=== PATIENT | female | born 1945 | race African-American/Black ===

== ENCOUNTER 2021-09-21 03:18 | Observation (INO) ==
[2021-09-21] MEDS ORDERED: ASPIRIN 325 MG TABLET PO STA (03:34)
[2021-09-21] MEDS ORDERED: NITROGLYCERIN SL 0.4 MG TABLET SL STA (04:18)
[2021-09-21] MEDS ORDERED: MORPHINE 2 MG/1 ML SYRINGE IV STA (04:18)
[2021-09-21] MEDS ORDERED: ONDANSETRON 4 MG/2 ML VIAL IV STA (04:18)
[2021-09-21 04:46] LABS: Basophils # 0.1 10*3/uL (0.0-0.2); Basophils % 0.5 % (0.0-0.8); Eosinophils # 0.2 10*3/uL (0.0-0.87); Eosinophils % 2.1 % (0.00-10.9); Hematocrit 38.8 VOL% (35.7-47.0); Hemoglobin 12.5 GM/DL (12.0-16.0); Immature Granulocytes % 0.4 %; Immature Granulocytes Absolute 0.04 #; Lymphocytes # 3.5 10*3/uL (1.4-4.0); Lymphocytes % 33.5 % (21.3-54.2); Mean Corpuscular HGB Conc 32.2 GM/DL (32-36); Mean Corpuscular Volume 86.2 FL (87-102); Mean Platelet Volume 9.4 FL (9.6-12.0); Monocytes % 6.9 % (1.7-12.7); Neutrophils % 56.6 % (38.7-73.9); Platelet Count 431 T/CUMM (130-400); Red Cell Distribution Width 13.6 % (9.3-17.3); White Blood Count 10.5 T/CUMM (4-12)
[2021-09-21 04:55] LABS: INR 0.9; PT Patient Result 10.5 SECS (10.5-12.0)
[2021-09-21 05:14] LABS: Alanine Aminotransferase 10 U/L (13-56); Albumin 3.9 G/DL (3.4-5.0); Alkaline Phosphatase 119 U/L (45-117); Aspartate Amino Transferase 9 U/L (0-37); Bilirubin,Total < 0.39 MG/DL (0.20-1.00); Blood Urea Nitrogen 22 MG/DL (7-18); Calcium 9.4 MG/DL (8.5-10.1); Carbon Dioxide 26 MMOL/L (21-32); Estimated Glom Filtration Rate 77 ML/MIN; Glucose 210 MG/DL (74-106); Osmolality,Calculated 281.8 MOS/KG (273-304); Potassium 3.6 MMOL/L (3.5-5.1); Sodium 137 MMOL/L (136-145); Total Protein 7.4 G/DL (6.4-8.2)
[2021-09-21] MEDS ORDERED: hydrALAZINE 20 MG/1 ML VIAL IV PRN (05:53)
[2021-09-21] MEDS ORDERED: ONDANSETRON 4 MG/2 ML VIAL IV PRN (05:53)
[2021-09-21] MEDS ORDERED: GLUCAGON 1 MG VIAL IM PRN (05:53)
[2021-09-21] MEDS ORDERED: MAGNESIUM SULF RIDER 2 GM/50 ML PREMIX IV ONE (05:53)
[2021-09-21] MEDS ORDERED: MORPHINE 2 MG/1 ML SYRINGE IV PRN (05:53)
[2021-09-21] MEDS ORDERED: ACETAMINOPHEN 325 MG TABLET PO PRN (05:53)
[2021-09-21] MEDS ORDERED: DEXTROSE 10% 250 ML BAG IV PRN (05:53)
[2021-09-21] MEDS ORDERED: MAGNESIUM SULF RIDER 4 GM/100 ML PREMIX IV PRN (06:52)
[2021-09-21] MEDS ORDERED: MAGNESIUM SULF RIDER 2 GM/50 ML PREMIX IV PRN (06:52)
[2021-09-21] MEDS: INSULIN LISPRO 100 UNIT/ML SUBCUT SCH ×3 (07:35→16:40)
[2021-09-21 08:53] LABS: Risk Ratio 3.57; Thyroid Stimulating Hormone 2.49 uIU/ml (0.358-3.74); VLDL Cholesterol 24.4 MG/DL
[2021-09-21] MEDS: PANTOPRAZOLE 40 MG TABLET PO SCH ×2 (09:02→22:03)
[2021-09-21] MEDS: ENOXAPARIN 40 MG/0.4 ML SYRINGE SUBCUT SCH (09:02)
[2021-09-21] MEDS: METOPROLOL SUCCINATE XL 25 MG TABLET PO SCH (10:06)
[2021-09-21] MEDS: POTASSIUM CHLORIDE 20 MEQ TABLET PO SCH (12:11)
[2021-09-21] MEDS: LOSARTAN 50 MG TABLET PO SCH (12:11)
[2021-09-21] MEDS: CYPROHEPTADINE 4 MG TABLET PO SCH (22:03)
[2021-09-22] MEDS: INSULIN LISPRO 100 UNIT/ML SUBCUT SCH ×4 (03:07→16:47)
[2021-09-22 05:54] LABS: Basophils # 0.1 10*3/uL (0.0-0.2); Basophils % 0.6 % (0.0-0.8); Eosinophils # 0.2 10*3/uL (0.0-0.87); Eosinophils % 2.4 % (0.00-10.9); Hemoglobin 11.6 GM/DL (12.0-16.0); Immature Granulocytes % 0.2 %; Immature Granulocytes Absolute 0.02 #; Lymphocytes # 4.3 10*3/uL (1.4-4.0); Lymphocytes % 52.3 % (21.3-54.2); Mean Corpuscular HGB Conc 31.4 GM/DL (32-36); Mean Corpuscular Volume 87.3 FL (87-102); Mean Platelet Volume 9.7 FL (9.6-12.0); Monocytes % 9.4 % (1.7-12.7); Neutrophils % 35.1 % (38.7-73.9); Platelet Count 394 T/CUMM (130-400); Red Blood Count 4.24 MC/CUMM (3.8-5.5); Red Cell Distribution Width 13.7 % (9.3-17.3); White Blood Count 8.2 T/CUMM (4-12)
[2021-09-22 06:24] LABS: Calcium 9.1 MG/DL (8.5-10.1); Osmolality,Calculated 277.7 MOS/KG (273-304); Potassium 4.4 MMOL/L (3.5-5.1)
[2021-09-22 06:25] LABS: Eosinophils 5 % (0-10); Hypochromia Slight; Lymphocytes 55 % (20-55); Microcytosis Slight; Platelet Estimate Adequate; Segmented Neutrophils 38 % (50-85); Total Cells Counted 100
[2021-09-22] MEDS: LEVOTHYROXINE 100 MCG TABLET PO SCH (06:34)
[2021-09-22] MEDS ORDERED: ASPIRIN EC 325 MG TABLET PO SCH (09:00)
[2021-09-22] MEDS: CYPROHEPTADINE 4 MG TABLET PO SCH ×2 (10:16→21:40)
[2021-09-22] MEDS: ASPIRIN EC 81 MG TABLET PO SCH (10:16)
[2021-09-22] MEDS: METOPROLOL SUCCINATE XL 25 MG TABLET PO SCH (10:16)
[2021-09-22] MEDS: ZONISAMIDE 100 MG CAPSULE PO SCH (10:17)
[2021-09-22] MEDS: hydroCHLOROthiazide 12.5 MG CAPSULE PO SCH (10:17)
[2021-09-22] MEDS: LOSARTAN 50 MG TABLET PO SCH (10:17)
[2021-09-22] MEDS: SIMVASTATIN 10 MG TABLET PO SCH (10:17)
[2021-09-22] MEDS: POTASSIUM CHLORIDE 20 MEQ TABLET PO SCH (10:17)
[2021-09-22] MEDS: PANTOPRAZOLE 40 MG TABLET PO SCH ×3 (10:17→21:40)
[2021-09-22] MEDS: ENOXAPARIN 40 MG/0.4 ML SYRINGE SUBCUT SCH (10:18)
[2021-09-22] MEDS: BRIMONIDINE/TIMOLOL OPH SOLN 5 ML BOTTLE LEFT EYE SCH (10:36)
[2021-09-22] MEDS: LATANOPROST 0.005% OPH SOLN 2.5 ML BOTTLE LEFT EYE SCH (10:37)
[2021-09-22] MEDS: DORZOLAMIDE 2% OPH SOLN 10 ML BOTTLE LEFT EYE SCH (10:37)
[2021-09-23] MEDS ORDERED: DIAZEPAM 5 MG TABLET PO ONE (06:00)
[2021-09-23] MEDS ORDERED: DEXTROSE 5% NACL 0.45% 1,000 ML IV SCH (06:00)
[2021-09-23 06:33] LABS: Basophils # 0.1 10*3/uL (0.0-0.2); Basophils % 0.5 % (0.0-0.8); Eosinophils # 0.3 10*3/uL (0.0-0.87); Hemoglobin 13.4 GM/DL (12.0-16.0); Immature Granulocytes % 0.2 %; Immature Granulocytes Absolute 0.02 #; Lymphocytes # 4.6 10*3/uL (1.4-4.0); Lymphocytes % 45.6 % (21.3-54.2); Mean Corpuscular HGB Conc 31.9 GM/DL (32-36); Mean Corpuscular Volume 86.2 FL (87-102); Mean Platelet Volume 9.4 FL (9.6-12.0); Monocytes % 7.6 % (1.7-12.7); Neutrophils % 43.1 % (38.7-73.9); Platelet Count 473 T/CUMM (130-400); Red Blood Count 4.87 MC/CUMM (3.8-5.5); Red Cell Distribution Width 13.8 % (9.3-17.3)
[2021-09-23] MEDS: INSULIN LISPRO 100 UNIT/ML SUBCUT SCH ×2 (06:37→10:11)
[2021-09-23] MEDS: LEVOTHYROXINE 100 MCG TABLET PO SCH (06:37)
[2021-09-23] MEDS ORDERED: LIDOCAINE 1% 20 ML VIAL ONE (06:45)
[2021-09-23] MEDS ORDERED: HEPARIN/NACL 0.9% 2 UNITS/ML 2,000 UNIT/1,000 ML BAG IV ONE (06:45)
[2021-09-23] MEDS ORDERED: LIDOCAINE 1%/EPI INJ 20 ML VIAL ONE (06:45)
[2021-09-23 07:10] LABS: Calcium 9.8 MG/DL (8.5-10.1); Osmolality,Calculated 278.8 MOS/KG (273-304); Potassium 3.9 MMOL/L (3.5-5.1)
[2021-09-23] MEDS ORDERED: MIDAZOLAM 2 MG/2 ML VIAL ONE (07:22)
[2021-09-23] MEDS ORDERED: fentaNYL 100 MCG/2 ML VIAL ONE (07:22)
[2021-09-23] MEDS: POTASSIUM CHLORIDE 20 MEQ TABLET PO SCH (08:51)
[2021-09-23] MEDS: DORZOLAMIDE 2% OPH SOLN 10 ML BOTTLE LEFT EYE SCH (08:51)
[2021-09-23] MEDS: BRIMONIDINE/TIMOLOL OPH SOLN 5 ML BOTTLE LEFT EYE SCH (08:51)
[2021-09-23] MEDS: ASPIRIN EC 81 MG TABLET PO SCH (08:51)
[2021-09-23] MEDS: LATANOPROST 0.005% OPH SOLN 2.5 ML BOTTLE LEFT EYE SCH (08:51)
[2021-09-23] MEDS: hydroCHLOROthiazide 12.5 MG CAPSULE PO SCH (08:51)
[2021-09-23] MEDS: SIMVASTATIN 10 MG TABLET PO SCH (08:52)
[2021-09-23] MEDS: ZONISAMIDE 100 MG CAPSULE PO SCH (08:52)
[2021-09-23] MEDS: METOPROLOL SUCCINATE XL 25 MG TABLET PO SCH (08:52)
[2021-09-23] MEDS: LOSARTAN 50 MG TABLET PO SCH (08:52)
[2021-09-23] MEDS: PANTOPRAZOLE 40 MG TABLET PO SCH (08:52)
[2021-09-23] MEDS: CYPROHEPTADINE 4 MG TABLET PO SCH (08:52)
[2021-09-23] MEDS: ENOXAPARIN 40 MG/0.4 ML SYRINGE SUBCUT SCH (08:52)
[2021-09-23 11:32] VITALS: BP 102/64
== END 2021-09-23 12:21 | disposition home or self-care (01) ==
LOC: N.EDINP 03:18 → N.ED 03:18 → SUATTDRO 05:53 → N.TELEN 18:09
PROVIDERS: ADMIT Phlebology; ATTEND Internal Medicine
PROC: CLCCHCL (ICD-10-PCS; 2021-09-23 07:45)